=== PATIENT | female | born 1985 | race Caucasian/White ===

== ENCOUNTER 2020-02-16 22:06 | Emergency (ER) | payer MEDICAID, OTHER ==
[~2020-02-16] VITALS: Ht 167.6 cm; Wt 61.7 kg
--- NOTE | 2020-02-16 22:25 | NUR ---
JONAS FROM HOME TO ER BED 12. AAOX4. NOT IN RESP DISTRESS, BREATHING EVEN AND UNLABORED. BROUGHT FOR OPIOD OVERDOSE. PT WAS FOUNF UNCONSCIOUS IN THE BATHROOM. EMS GAVE PT NARCAM 1MG INTRANASALLY AND PATIENT AWOKEN UP. AT THE TIME OF ASSESSMENT, PT IS EMOTIONALLY DISTRESSED, PT VERBALIZED THAT SHE IS GOING THROUGH A TOUGH TIME WITH HER PARTNER. PT ADMITS TO INJECTING FENTANYL, PT QUANTIFIES AMOUNT "$5.OO WORTH". PT DENIES ANY SUICIDAL NOR HOMICIDAL IDEATION. PT DID WHAT SHE DID BECAUSE SHE WAS UPSET WITH THE SITUATION SHE IS IN. AWAITING MD FOR EVAL. VSS.
--- NOTE | 2020-02-16 23:46 | NUR ---
PT NOTED W/ O2 SAT @ 90% ON RA. PLACE DON O2 VIA NC @ 2LPM SATTING @ 95% PER PT, SHE HAS BEEN BASELINE TO HAVE LOW O2 SINCE SHE WAS A CHILD. MADE AWARE.
--- NOTE | 2020-02-17 | NUR ---
Patient discharged to home in stable condition. Written and verbal after care instructions given. Patient verbalizes understanding of instruction. Pt ambulatory with a steady gait
[2020-02-17 00:01] VITALS: BP 123/62
== END 2020-02-17 00:01 | disposition home or self-care (01) ==
LOC: ER 22:10 → EDBD 22:10 → ER 02-17 00:01
DX: T40.1X1A Poisoning by heroin, accidental (unintentional), initial encounter (principal); I10 Essential (primary) hypertension; Z88.8 Allergy status to other drugs, medicaments and biological substances; Y92.89 Other specified places as the place of occurrence of the external cause